=== PATIENT | female | born 1975 | race Caucasian/White ===

== ENCOUNTER 2016-12-03 06:28 | Emergency (ER) | payer OTHER ==
[2016-12-03] MEDS ORDERED: MECLIZINE 12.5 MG TAB PO STA (07:12)
--- NOTE | 2016-12-03 07:20 | ED ---
Dizziness HPI - General Chief Complaint: Dizziness Stated Complaint: Dizzy Time Seen by Provider: 12/03/16 07:00 Source: patient, family, RN notes reviewed Mode of arrival: ambulatory Limitations: no limitations - History of Present Illness Initial Comments: This is a 41-year-old female with a benign past medical history states she had the onset around 10:30 last night of some dizziness. He states when she walks she feels off balance like she may follow over. She feels generally weak she has had a recent upper respiratory infection and has had several days of occasional nosebleed. She denies any overt fevers chills or sweats no earache sore throat. She has had some congestion with in her lungs. She denies any phlegm production. No prior history of vertigo head injury strokes MD Complaint: dizziness, difficulty walking - Related Data Home Medications Medication Instructions Recorded Confirmed Ibuprofen [Motrin] 800 mg PO Q6HR PRN 12/03/16 12/03/16 L.acidoph,Paracasei, B.lactis 1 cap PO DAILY 12/03/16 12/03/16 [Probiotic] Previous Rx's Medication Instructions Recorded Meclizine [Antivert] 25 mg PO TID #20 tab 12/03/16 Allergies Allergy/AdvReac Type Severity Reaction Status Date / Time No Known Allergies Allergy Verified 12/03/16 07:04 Review of Systems ROS Statement: Those systems with pertinent positive or pertinent negative responses have been documented in the HPI. ROS Other: All systems not noted in ROS Statement are negative. Past Medical History Past Medical History: No Reported History History of Any Multi-Drug Resistant Organisms: None Reported Past Surgical History: No Surgical Hx Reported Past Psychological History: No Psychological Hx Reported Smoking Status: Current every day smoker Past Alcohol Use History: Occasional Past Drug Use History: None Reported General Exam - General Exam Comments Initial Comments: This is a well-developed well-nourished awake alert oriented 3 female Limitations: no limitations General appearance: alert, in no apparent distress Head exam: Present: atraumatic, normocephalic, normal inspection Eye exam: Present: normal appearance, PERRL, EOMI. Absent: scleral icterus, conjunctival injection, periorbital swelling ENT exam: Present: mucous membranes moist, other (Some boggy nasal mucosa no discharge at this time) Neck exam: Present: normal inspection. Absent: tenderness, meningismus, lymphadenopathy Respiratory exam: Present: normal lung sounds bilaterally. Absent: respiratory distress, wheezes, rales, rhonchi, stridor Cardiovascular Exam: Present: regular rate, normal rhythm, normal heart sounds. Absent: systolic murmur, diastolic murmur, rubs, gallop, clicks GI/Abdominal exam: Present: soft, normal bowel sounds. Absent: distended, tenderness, guarding, rebound, rigid Extremities exam: Present: normal inspection, full ROM, normal capillary refill. Absent: tenderness, pedal edema, joint swelling, calf tenderness Back exam: Present: normal inspection Neurological exam: Present: alert, oriented X3, CN II-XII intact Psychiatric exam: Present: normal affect, normal mood Skin exam: Present: warm, dry, intact, normal color. Absent: rash Course Vital Signs 12/03/16 06:32 Temperature 98.1 F Pulse Rate 67 Respiratory 18 Rate Blood Pressure 117/77 O2 Sat by Pulse 100 Oximetry - Reevaluation(s) Reevaluation #1: 12/03/16 08:30 The patient was noted ambulate without much difficulty. Reevaluation #2: 12/03/16 08:30 I did a long discussion with the patient regarding smoking cessation and risks of smoking. This lasted approximately 3.2 minutes EKG Findings - EKG Results: EKG: interpreted by KAYLA WOO, sinus rhythm, normal axis, normal QRS, normal ST/ T, no acute changes (Normal sinus rhythm with a rate of 62. Interval 156 QRS duration 92 QT/QTC of 14/[address]-T wave changes.) Medical Decision Making - Medical Decision Making A long discussion with the patient regarding the findings and the likelihood a virus therefore antibiotics are of no use an or not indicated. She was counseled about smoking cessation. We placed on Antivert she is given a note for work today. She was encouraged to increase oral fluids. - Radiology Data Radiology results: report reviewed (X-rays negative for acute findings.), image reviewed Disposition Clinical Impression: Vertigo, Smoking, Smoking Disposition: HOME SELF-CARE Condition: Good Instructions: Dizziness (ED), Benign Paroxysmal Positional Vertigo (ED), How to Stop Smoking (ED) Prescriptions: Meclizine [Antivert] 25 mg PO TID #20 tab Referrals: None,Stated [Primary Care Provider] - 1-2 days
--- NOTE | 2016-12-03 08:08 | XR ---
EXAMINATION TYPE: XR chest 2V DATE OF EXAM: 12/03/2016 7:45 AM COMPARISON: NONE HISTORY: Cough FINDINGS: The lungs are clear and there is no pneumothorax, pleural effusion, or focal pneumonia. IMPRESSION: 1. No acute process.
[2016-12-03 08:48] VITALS: BP 103/59; PULSE 61; RESP 16; TEMP 98.5
== END 2016-12-03 08:50 | disposition home or self-care (01) ==
LOC: EC 06:28
DX: R42 Dizziness and giddiness (principal); R04.0 Epistaxis; F17.200 Nicotine dependence, unspecified, uncomplicated; Z79.899 Other long term (current) drug therapy
CPT/HCPCS: 71020; 93005; 99283

== ENCOUNTER → 2017-10-12 | Outpatient (CLI) | payer OTHER ==
--- NOTE | 2017-10-13 07:03 | US ---
EXAMINATION TYPE: US pelvic complete DATE OF EXAM: 10/12/2017 COMPARISON: NONE CLINICAL HISTORY: R10.2 Pelvic Pain, N81.4 Uterine Prolapse. Pelvic pain with heavier cycles, physici an can feel uterus within vaginal canal and patient is pending hysterectomy, IUD TECHNIQUE: TA, no TV Date of LMP: 09/14/2017 EXAM MEASUREMENTS: Uterus: 10.7 x 7.2 x 6.2 cm Endometrial Stripe: 2.4 cm Right Ovary: 2.9 x 2.2 x 1.6 cm Left Ovary: 2.3 x 1.5 x 1.6 cm 1. Uterus: Anteverted wnl 2. Endometrium: thickened with fluid seen anterior to IUD and small area of endometrial fluid noted to the left if IUD. IUD is located centrally within the endometrial canal bridging the lower and uppe r uterine segments. 3. Right Ovary: wnl 4. Left Ovary: wnl 5. Bilateral Adnexa: wnl 6. Posterior cul-de-sac: wnl IMPRESSION: Abnormally thickened endometrium measuring up to 2.2 cm with a small amount of endometria l cavity fluid seen adjacent to the intrauterine device near the fundus. Differential is for endometr ial hyperplasia, endometrial polyp or endometrial carcinoma. Direct visualization and/or tissue sampl ing are recommended. A Yellow message has been communicated to Pooja Busch DO via the [employer] Critical Result system on 10/13/2017 7:00 AM, Message ID [id number].
== END | disposition home or self-care (01) ==
LOC: RADUSWWP 16:07
PROVIDERS: ATTEND Obstetrics & Gynecology
DX: R93.8 Abnormal findings on diagnostic imaging of other specified body structures (principal); R10.2 Pelvic and perineal pain
CPT/HCPCS: 76856

== ENCOUNTER → 2017-10-26 | Outpatient (CLI) | payer OTHER ==
--- NOTE | 2017-10-26 13:44 | US ---
EXAMINATION TYPE: US pelvic complete DATE OF EXAM: 10/26/2017 COMPARISON: US October 12, 2017 CLINICAL HISTORY: N93.8 ENDOMETRIAL THICKENING ON ULTRASOUND. Prior abnormal ultrasound. TECHNIQUE: Transabdominal (TA) Date of LMP: 10/16/2017 EXAM MEASUREMENTS: Uterus: 10.9 x 5.4 x 7.3 cm Endometrial Stripe: 0.8 cm Right Ovary: 3.4 x 2.4 x 3.7 cm Left Ovary: 2.5 x 2.5 x 3.2 cm 1. Uterus: Anteverted wnl 2. Endometrium: wnl 3. Right Ovary: wnl 4. Left Ovary: wnl 5. Bilateral Adnexa: wnl 6. Posterior cul-de-sac: no free fluid Linear hypodensity consistent with IUD centrally in uterus is redemonstrated. There is interval impro vement in endometrial thickening on current study. IMPRESSION: Marked improvement in endometrial thickening after menses in between ultrasound exams.
== END | disposition home or self-care (01) ==
LOC: RADUSWWP 12:17
PROVIDERS: ATTEND Obstetrics & Gynecology
DX: R93.8 Abnormal findings on diagnostic imaging of other specified body structures (principal); N93.8 Other specified abnormal uterine and vaginal bleeding
CPT/HCPCS: 76856

== ENCOUNTER → 2017-11-24 | Outpatient (CLI) | payer OTHER ==
[2017-11-24 14:30] LABS: Basophils % (A) 1 %; CH 28.1; CHCM 31.6; Eosinophils # (A) 0.1 k/uL (0-0.7); Eosinophils % (A) 2 %; HCT 38.3 % (34.0-46.0); HDW 2.32; HGB 12.4 gm/dL (11.4-16.0); Luc # (Auto) 0.14; Luc % (Auto) 2; Lymphocytes % (A) 35 %; MCH 28.9 pg (25.0-35.0); MCHC 32.4 g/dL (31.0-37.0); Monocytes # (A) 0.3 k/uL (0-1.0); Monocytes % (A) 6 %; Neutrophils # (A) 3.1 k/uL (1.3-7.7); Neutrophils % (A) 55 %; RBC 4.29 m/uL (3.80-5.40); RDW 15.1 % (11.5-15.5); WBC 5.8 k/uL (3.8-10.6); WBC (Perox) 6.32
[2017-11-24 14:32] LABS: MCV 89.3 fL (80.0-100.0)
[2017-11-24 14:33] LABS: Anion Gap 7 mmol/L; Blood Urea Nitrogen 15 mg/dL (7-17); Calcium 10.1 mg/dL (8.4-10.2); Carbon Dioxide 27 mmol/L (22-30); Chloride 104 mmol/L (98-107); Glucose 73 mg/dL (74-99); Non-African American GFR(MDRD) >60 (>60 ml/min/1.73 sqM); Potassium 4.4 mmol/L (3.5-5.1); Sodium 138 mmol/L (137-145)
== END | disposition home or self-care (01) ==
LOC: LABPAT 13:15
PROVIDERS: ATTEND Obstetrics & Gynecology
DX: Z01.812 Encounter for preprocedural laboratory examination (principal)
CPT/HCPCS: 36415; 80048; 85025

== ENCOUNTER 2017-12-01 05:50 | Inpatient (IN) | payer OTHER ==
--- NOTE | 2017-11-30 20:07 | P.HPOB ---
History of Present Illness H&P Date: 11/30/17 Chief Complaint: Uterine prolapse with cystocele and rectocele, pelvic pain This is a 42-year-old female 7 para 5 who presents for total vaginal hysterectomy with anterior and possible posterior vaginal colporrhaphy along with urethral sling to be performed by Dr. Bullock for urinary stress incontinence. Patient complains of heavy menses along with painful menses that is been occurring for 4 years. She also complains of lower pelvic pain even when she is not on her menses and painful intercourse. She also expresses some stress incontinence and has been evaluated by urology who determined that she does need to have a sling during her procedure. She has consented to possible total abdominal hysterectomy if necessary. Obstetrical history: . History of 5 vaginal deliveries and 2 miscarriages. Gynecologic history: No history of sexual transmitted diseases. She currently has a ParaGard IUD for control. Social history: She is . She does factory work. Review of Systems Constitutional: Reports fatigue, Denies chills, Denies fever Eyes: denies blurred vision, denies pain Ears, nose, mouth and throat: Denies headache, Denies sore throat Cardiovascular: Reports palpitations, Denies chest pain Gastrointestinal: Reports abdominal pain (With bowel movement when she is on her menses) Genitourinary: Reports dysmenorrhea, Reports dyspareunia, Reports menorrhagia, Reports pelvic pain, Reports prolapse symptoms, Reports stress incontinence Menstruation: Reports period heavy Musculoskeletal: Reports low back pain Integumentary: Denies pruritus, Denies rash Neurological: Denies numbness, Denies weakness Psychiatric: Reports anxiety, Reports change in libido, Reports insomnia Endocrine: Reports fatigue, Denies weight change Past Medical History Past Medical History: No Reported History Additional Past Medical History / Comment(s): URINARY INCONTINENCE, PROLAPSED UTERUS History of Any Multi-Drug Resistant Organisms: None Reported Past Surgical History: No Surgical Hx Reported Additional Past Surgical History / Comment(s): REMOVAL OF NORPLANT Past Anesthesia/Blood Transfusion Reactions: No Reported Reaction Past Psychological History: Anxiety Smoking Status: Current every day smoker Past Alcohol Use History: Occasional Past Drug Use History: None Reported - Past Family History Mother Family Medical History: Hypertension Additional Family Medical History / Comment(s): Aortic aneurysm Father Family Medical History: CVA/TIA, Diabetes Mellitus, Hypertension Medications and Allergies Home Medications Medication Instructions Recorded Confirmed Type Acetaminophen Tab [Tylenol Tab] 1,500 mg PO BID PRN 11/18/17 11/18/17 History Allergies Allergy/AdvReac Type Severity Reaction Status Date / Time No Known Allergies Allergy Verified 11/18/17 09:22 Exam Osteopathic Statement: *. No significant issues noted on an osteopathic structural exam other than those noted in the History and Physical/Consult. HEENT: Within normal limits Heart: Regular rate and rhythm Lungs: Clear to auscultation bilaterally Abdomen: Soft, nontender Pelvic exam: Uterus is tender, anteverted, with no adnexal masses palpated. Bilateral adnexa are tender. There is second-degree uterine prolapse, second- degree cystocele, and minimal first-degree rectocele noted. Extremities: Negative Homans Assessment and Plan (1) Cystocele with uterine prolapse Status: Acute Code(s): N81.4 - UTEROVAGINAL PROLAPSE, UNSPECIFIED SNOMED Code(s): 615120056 (2) Urinary, incontinence, stress female Status: Acute Code(s): N39.3 - STRESS INCONTINENCE (FEMALE) (MALE) SNOMED Code(s): 46923941 (3) Pelvic pain Status: Acute Code(s): R10.2 - PELVIC AND PERINEAL PAIN SNOMED Code(s): 46262083 Plan: Proceed with total vaginal hysterectomy with anterior vaginal colporrhaphy, possible posterior vaginal colporrhaphy, possible total abdominal hysterectomy. Dr. Bullock will perform pubovaginal sling. I have discussed the risks, benefits, and alternative therapies for the above- mentioned procedure and for both sedation/anesthesia as well as necessary blood products administration, if indicated, as they pertain to this patient. The patient has indicated her understanding and acceptance of the risks and procedures discussed.
[~2017-12-01 05:50] MED LIST: DEXAMETHASONE SOD PHOSPHATE 10 MG/ML 1 ML VIAL IV ONE; HYDROmorphone 1 MG/ML 1 ML SYRINGE IVP PRN; LACTATED RINGERS 1,000 ML IV ONE; MORPHINE SULFATE 5 MG/ML SYRINGE IV PRN; ONDANSETRON 4 MG/2 ML VIAL IVP ONE; ONDANSETRON 4 MG/2 ML VIAL IVP PRN; ceFAZolin IN SWFI 2 GM/20 ML SYRINGE IVP ONE
[2017-12-01] MEDS ORDERED: LIDOCAINE 1% 20 ML VIAL (10MG/ML) FOR IV START INTRADERMA ONE (06:14)
[2017-12-01] MEDS ORDERED: LACTATED RINGERS 1,000 ML IV ONE ×3 (06:14→08:22)
[2017-12-01] MEDS ORDERED: SCOPOLAMINE 1.5MG/72HR PATCH TRANSDERM ONE (06:19)
[2017-12-01] MEDS ORDERED: GENTAMICIN 120 MG in SODIUM CHLORIDE 0.9% 100 ML IVPB ONE (06:41)
[2017-12-01] MEDS ORDERED: MIDAZOLAM 2 MG/2 ML VIAL IV ONE (06:49)
[2017-12-01] MEDS ORDERED: HYDROmorphone (PF) 1 MG/ML ONE (07:36)
[2017-12-01] MEDS ORDERED: KETOROLAC 30 MG/ML 1 ML VIAL ONE (07:36)
[2017-12-01] MEDS ORDERED: LIDOCAINE 1% INJ 10MG/ML (20 ML MDV) ONE (07:36)
[2017-12-01] MEDS ORDERED: SUCCINYLCHOLINE CHLORIDE 100 MG/5 ML SYR IV ONE (07:36)
[2017-12-01] MEDS ORDERED: PROPOFOL 10 MG/ML 20 ML VIAL IV ONE (07:36)
[2017-12-01] MEDS ORDERED: MIDAZOLAM 2 MG/2 ML VIAL ONE (07:36)
[2017-12-01] MEDS ORDERED: fentaNYL (PF) 50 MCG/ML 2 ML AMP ONE (07:36)
[2017-12-01] MEDS ORDERED: EPINEPHrine 1 MG/ML 1 ML AMP IV ONE ×2 (07:52→09:06)
[2017-12-01] MEDS ORDERED: GENTAMICIN 80 MG in SODIUM CHLORIDE 0.9% 500 ML IRRIGATION ONE (07:52)
[2017-12-01] MEDS ORDERED: BACITRACIN 500 UNIT/GM OINT 28.4 GM TUBE TOPICAL ONE (08:05)
--- NOTE | 2017-12-01 09:40 | P.OP ---
Date of Procedure: 12/01/17 Preoperative Diagnosis: Mixed Urinary Incontinence Postoperative Diagnosis: Same Procedure(s) Performed: Obtryx Subfascial Sling Anesthesia: SARAH Surgeon: Demetrius Bullock Pulley Worker #1: Pooja Busch Estimated Blood Loss (ml): 50 Pathology: none sent Condition: stable Disposition: PACU Indications for Procedure: The patient is a 42-year-old woman with mild mixed urinary incontinence. She is scheduled to undergo a hysterectomy for prolapse and dysmenorrhea. Examination shows evidence of urethral hypermobility, and urodynamic testing is consistent with type II stress urinary incontinence. In view of this, I have suggested she undergo a TOT sling at the time of her TVH. Operative Findings: Complete left-sided ureteral duplication. Description of Procedure: I entered the operating room after Dr. Busch had completed the TVH. The patient was positioned in the dorsolithotomy position, with her legs supported in candycane stirrups. Metzenbaum scissors were used to dissect laterally within the submucosal plane, to the inferior pubic ramus. The scalpel was used to make bilateral groin incisions at the level of the clitoris. Subcutaneous tissues were spread with a hemostat. Each of the helical needles were passed through the respective groin incision, and turned such that the needle tip wrapped around the pubis. The needle tips were guided digitally into the vaginal incision. The Obtryx graft, which had been previously soaked in antibiotic solution, was secured to the needle tips in the standard fashion. The needles were then withdrawn, and the position of the graft was adjusted such that it overlie the mid urethra, as desired. With a hemostat placed between the graft and the urethra to prevent tension of the graft over the urethra, the plastic sheath was removed from the ends of the graft. The ends of the graft were cut beneath the skin incisions, and these incisions were closed using 4-0 Vicryl suture in a subcuticular fashion. Hemostasis within the vaginal incision was adequate. Cystoscopy was performed. The 30 lens was used to introduce the 17-Romanian Storz cystoscopic sheath through the urethra and into the bladder under direct vision. The urethra and bladder were unremarkable. There was no evidence of perforation. The right ureteral orifice was of normal anatomic location, and clear urine effluxed from it. 2 ureteral orifices were seen on the left, consistent with a complete ureteral duplication, and clear urine effluxed from both. No tumors or foreign bodies were seen. The cystoscope was removed, and the Jimenes catheter was replaced into the bladder. Dr. Busch proceeded to close the vaginal incision using 0 Vicryl suture in a running fashion. Vaginal packing was placed. All sponge and needle counts were correct. The patient tolerated the procedure well was taken to the recovery room in stable condition.
--- NOTE | 2017-12-01 09:40 | P.OP ---
Date of Procedure: 12/01/17 Preoperative Diagnosis: 1. Menorrhagia with regular cycle. 2. Pelvic pain. 3. Uterine prolapse with cystocele. 4. Urinary stress incontinence. Postoperative Diagnosis: Same Procedure(s) Performed: Total vaginal hysterectomy with anterior vaginal colporrhaphy Obtryx halo sling performed by Dr. Bullock Anesthesia: SARAH Surgeon: Pooja Busch Cloth Tester #1: Bennett Montemayor Estimated Blood Loss (ml): 250 Pathology: other (Uterus with cervix, vaginal mucosa) Condition: stable Disposition: floor Indications for Procedure: This is a 42-year-old female 7 para 5 who presents for total vaginal hysterectomy with anterior and possible posterior vaginal colporrhaphy along with urethral sling to be performed by Dr. Bullock for urinary stress incontinence. Patient complains of heavy menses along with painful menses that is been occurring for 4 years. She also complains of lower pelvic pain even when she is not on her menses and painful intercourse. She also expresses some stress incontinence and has been evaluated by urology who determined that she does need to have a sling during her procedure. She has consented to possible total abdominal hysterectomy if necessary. Operative Findings: Uterus is slightly bulky, anteverted. Both tubes and ovaries appeared normal. Grade 2 cystocele was noted. Minimal rectocele was appreciated. Description of Procedure: The patient is taken the operating room where she is placed in the dorsal lithotomy position. She is prepped and draped in the normal sterile fashion. Next a weighted speculum was placed in the patient's vagina and a right angle retractor was used to visualize the cervix. The anterior lip of the cervix is grasped with a single-tooth tenaculum. Next the cervix was circumferentially injected with one amp of epinephrine to 150 mL of normal saline. Next the cervix was circumscribed with a scalpel. The vaginal mucosa was pushed away from the cervix with a sponge. Next the uterosacral ligaments are clamped on either side with a Yohana clamp, cut with Salvador scissors, and then sutured with 0 Vicryl suture in a Yohana transfixion stitch and then held on either side with a straight hemostat. Next the posterior peritoneal reflection was identified and entered sharply with Salvador scissors. The edges of the vaginal mucosa was then tagged with 0 Vicryl suture and held with a curved hemostat for identification. Next a longbilled weighted speculum was placed through the posterior peritoneal reflection. Next the cardinal ligaments were clamped on either side with Yohana clamps, cut with Salvador scissors, and then sutured with 0 Vicryl suture in Yohana transfixion stitches and cut. Next the vesicouterine peritoneum reflection is identified and entered sharply with Metzenbaum scissors. A right angle bladder retractor is then used to retract the bladder. The uterine arteries are clamped on either side with Yohana clamps, cut with Salvador scissors, and then sutured with 0 Vicryl suture in Yohana transfixion stitches. The round ligament is also clamped on either side with a Yohana clamp , cut with Salvador scissors, and sutured with 0 Vicryl suture in Yohana transfixion stitches. The uterus is then delivered posteriorly with the assistance of a single-tooth tenaculum. This helped with visualization. Next the uterine ovarian ligament and tube were clamped on either side with a Yohana clamp, cut with Salvador scissors, and then sutured with 0 Vicryl suture in a figure -of-eight stitch, flashed, and then free tied with another suture of 0 Vicryl suture. These pedicles were held with a straight Wayne for identification. The uterus is removed from the field. Excellent hemostasis is noted after several interrupted stitches are placed. Both tubes and ovaries are visualized and appeared normal. Next the peritoneum is closed with 0 Vicryl suture in a pursestring fashion incorporating all the held ligaments. Next the uterine ovarian ligaments are tied together in the middle and cut. Next attention was turned to the cystocele repair. The edges of the vaginal mucosa are held with 2 Allis clamps. Next injection of the same epinephrine solution is injected underneath the mucosa upwards towards the urethra. Metzenbaum scissors were used to dissect underneath the vaginal mucosa and cut along the way up to just below the urethra. Sharp and blunt dissection are used to dissect the bladder away from the vaginal mucosa. Next Dr. Bullock performed his sling procedure. This will be dictated separately. The cystocele is reduced with 0 Vicryl suture in [id number] stitches on either side of the cystocele. Next the edges of the vaginal mucosa are trimmed with Metzenbaum scissors. Next the vaginal mucosa is sutured with 0 Vicryl suture in a running locked fashion incorporating the vaginal cuff. The uterosacral ligaments were also tied together in the midline prior to completely closing the vaginal cuff. Excellent hemostasis is noted. The Jimenes catheter was previously inserted by Dr. Kennedy and clear urine is noted. At this time no significant rectocele is noted. Next the vagina is packed with one-inch iodoform gauze with bacitracin ointment. All sponge and needle counts are correct and the patient is then taken to recovery room in stable condition.
[2017-12-01] MEDS: MEPERIDINE 50 MG/ML SYRINGE IVP ONE ×3 (09:53→10:26)
[2017-12-01] MEDS ORDERED: MEPERIDINE 50 MG/ML SYRINGE IVP ONE (09:53)
[2017-12-01] MEDS ORDERED: diphenhydrAMINE 50 MG/ML 1 ML VIAL IVP ONE (09:53)
[2017-12-01] MEDS ORDERED: NALOXONE 0.4 MG/ML 1 ML VIAL IV PRN (10:52)
[2017-12-01] MEDS ORDERED: HYDROmorphone PCA 5 MG/25 ML SYRINGE IV PRN (10:52)
[2017-12-01] MEDS ORDERED: diphenhydrAMINE 50 MG/ML 1 ML VIAL IVP PRN (10:52)
[2017-12-01] MEDS ORDERED: SIMETHICONE 80 MG CHEWABLE PO PRN (10:52)
[2017-12-01] MEDS ORDERED: Acetaminophen-Codeine 300-30mg TAB PO PRN (10:52)
[2017-12-01] MEDS ORDERED: IBUPROFEN 600 MG TAB PO PRN (10:52)
[2017-12-01] MEDS ORDERED: METOCLOPRAMIDE 5 MG/ML 2 ML VIAL IVP PRN (10:52)
[2017-12-01] MEDS ORDERED: ONDANSETRON 4 MG/2 ML VIAL IVP PRN (10:52)
[2017-12-01] MEDS ORDERED: ZOLPIDEM 5 MG TAB PO PRN (10:52)
[2017-12-01] MEDS: LACTATED RINGERS 1,000 ML IV SCH ×3 (11:07→23:03)
[2017-12-01] MEDS: KETOROLAC 30 MG/ML 1 ML VIAL IVP PRN ×2 (11:16→17:05)
[2017-12-01] MEDS: Acetaminophen-Codeine 300-30mg TAB PO PRN ×2 (13:55→20:52)
[2017-12-01] MEDS ORDERED: ceFAZolin 1 GM in SODIUM CHLORIDE 0.9% 100 ML IVPB SCH (16:00)
[2017-12-01] MEDS: ceFAZolin 1,000 MG in DEXTROSE/WATER 1 50ML.BAG IVPB SCH (16:03)
[2017-12-01 16:35] VITALS: BMI 27.2
[2017-12-01] MEDS: SENNOSIDES-DOCUSATE SODIUM 1 EACH TAB PO SCH ×2 (20:51)
[2017-12-02] MEDS: KETOROLAC 30 MG/ML 1 ML VIAL IVP PRN ×2 (00:28→06:12)
[2017-12-02] MEDS: ceFAZolin 1,000 MG in DEXTROSE/WATER 1 50ML.BAG IVPB SCH ×2 (00:29→09:31)
[2017-12-02 04:19] VITALS: RESP 18
[2017-12-02] MEDS ORDERED: ACETAMINOPHEN TAB 325 MG TAB PO PRN (07:41)
--- NOTE | 2017-12-02 08:02 | P.PN ---
Progress Note - Text Progress Note Date: 12/02/17 POD #1, s/p TVH with Obtryx sling. Patient reports mild discomfort. Her Jimenes catheter was removed this morning, but she has yet to void. She is afebrile with stable vital signs. Her groin incisions are intact. Postvoid residuals will be checked to assess bladder emptying. If she is unable to void, or empties incompletely, she will be taught to self catheterize. I'm hopeful that she can be discharged home later today, and follow up with me in 1 week.
[2017-12-02 08:25] LABS: Basophils % (A) 0 %; Eosinophils % (A) 0 %; HCT 31.6 % (34.0-46.0); Hypochromasia Slight; Lymphocytes # (A) 2.2 k/uL (1.0-4.8); Lymphocytes % (A) 25 %; MCH 28.2 pg (25.0-35.0); MCHC 30.7 g/dL (31.0-37.0); MCV 91.9 fL (80.0-100.0); Mean Platelet Volume 7.3; Monocytes # (A) 0.5 k/uL (0-1.0); Monocytes % (A) 6 %; Neutrophils % (A) 68 %; Platelet Count 213 k/uL (150-450); RBC 3.43 m/uL (3.80-5.40); WBC 8.9 k/uL (3.8-10.6)
[2017-12-02 08:29] LABS: HGB 9.7 gm/dL (11.4-16.0)
[2017-12-02] MEDS: Acetaminophen-Codeine 300-30mg TAB PO PRN (08:48)
--- NOTE | 2017-12-02 09:23 | P.DS ---
Providers Date of admission: 12/01/17 05:50 Expected date of discharge: 12/02/17 Attending physician: Pooja Busch Primary care physician: Nisha Ivory - Discharge Diagnosis(es) (1) Cystocele with uterine prolapse Current Visit: Yes Status: Acute (2) Urinary, incontinence, stress female Current Visit: Yes Status: Acute (3) Pelvic pain Current Visit: Yes Status: Acute Hospital Course: This is a 42-year-old female who underwent a total vaginal hysterectomy with anterior vaginal colporrhaphy and Obtryx vaginal slingurethralon 12/01/2017. Postoperatively she has done well. She has ambulated and has taken a shower. Since her catheter has been removed she has urinated good amounts in low postvoid residuals were noted. Her post void residuals are low. She has been passing flatus but no bowel movement yet. Her pain is fairly well controlled with oral pain medications. She is sore in her hips in her back but otherwise only has some mild cramping. Vaginal bleeding is decreasing. Vital signs are stable. Abdomen is soft with positive bowel sounds 4. Extremities show negative Homans. Impression is status post total vaginal hysterectomy with anterior vaginal colporrhaphy and suburethral sling, postoperative day #1. Plan is to discharge home today. She is advised to follow up in the office in approximately 2 weeks. Routine postoperative instructions are given. She will be given a prescription for ibuprofen and Tylenol 3. She also stated Dr. Bullock is sending her home on antibiotic. He plans to see her in the office in 1 week. She is advised to call the office if she has any further questions or concerns prior her to appointment time. Procedures: Total vaginal hysterectomy with anterior vaginal colporrhaphy and Obtryx suburethral sling on 12/01/2017 Patient Condition at Discharge: Stable Plan - Discharge Summary Discharge Rx Participant: Yes New Discharge Prescriptions: New Cephalexin [Keflex] 500 mg PO Q8HR #15 cap Hydrocodone/Acetaminophen [[place] 5-325] 1 - 2 each PO Q4HR PRN #20 tab PRN Reason: Pain Ibuprofen [Motrin] 600 mg PO Q6HR PRN #60 tab PRN Reason: Mild Discomfort No Action Acetaminophen Tab [Tylenol Tab] 1,500 mg PO BID PRN PRN Reason: PAIN Discharge Medication List Acetaminophen Tab [Tylenol Tab] 1,500 mg PO BID PRN 11/18/17 [History] Cephalexin [Keflex] 500 mg PO Q8HR #15 cap 12/02/17 [Rx] Hydrocodone/Acetaminophen [[place] 5-325] 1 - 2 each PO Q4HR PRN #20 tab 12/02/17 [Rx] Ibuprofen [Motrin] 600 mg PO Q6HR PRN #60 tab 12/02/17 [Rx] Follow up Appointment(s)/Referral(s): Demetrius Bullock MD [STAFF PHYSICIAN] - 1 Week Pooja Busch DO [Doctor of Osteopathic Medicine] - 2 Weeks Patient Instructions/Handouts: *Surgery [facility] - Scopalamine Patch Instructions Activity/Diet/Wound Care/Special Instructions: Diet as tolerated. No heavy lifting, stooping, or bending. May shower but no tub baths. No intercourse for 6 weeks. Discharge Disposition: HOME SELF-CARE
[2017-12-02] MEDS: SENNOSIDES-DOCUSATE SODIUM 1 EACH TAB PO SCH (09:34)
[2017-12-02 11:06] VITALS: BP 119/61; PULSE 72; TEMP 97.7
== END 2017-12-02 10:55 | disposition home or self-care (01) | DRG 743 ==
LOC: 2ORMAIN 05:50 → 4FBP 09:26
PROVIDERS: ADMIT Obstetrics & Gynecology; ATTEND Obstetrics & Gynecology
PROC: 0UT97ZZ Resection of Uterus, Via Natural or Artificial Opening (ICD-10-PCS; principal; 2017-12-01 07:30)
PROC: 0JQC0ZZ Repair Pelvic Region Subcutaneous Tissue and Fascia, Open Approach (ICD-10-PCS; principal; 2017-12-01 07:30)
PROC: 0TSD0ZZ Reposition Urethra, Open Approach (ICD-10-PCS; principal; 2017-12-01 07:30)
DX: N81.2 Incomplete uterovaginal prolapse (principal); F17.200 Nicotine dependence, unspecified, uncomplicated; N39.46 Mixed incontinence; N92.0 Excessive and frequent menstruation with regular cycle; N94.6 Dysmenorrhea, unspecified; Q62.5 Duplication of ureter; Z82.49 Family history of ischemic heart disease and other diseases of the circulatory system; Z83.3 Family history of diabetes mellitus; Z97.5 Presence of (intrauterine) contraceptive device
CPT/HCPCS: 81025; 85025; 86850; 86900; 86901; 88302; 88307

== ENCOUNTER → 2018-01-25 | Outpatient (CLI) | payer OTHER ==
--- NOTE | 2018-01-25 22:30 | MR ---
EXAMINATION TYPE: MR lumbar spine wo con DATE OF EXAM: 01/25/2018 COMPARISON: Lumbar spine x-ray September 22, 2017 HISTORY: Low back pain, myalgia, bilateral hip pain, and lumbar region with radiculopathy all per ord er. Increasing low back pain over last 2-3 years going into right buttocks per patient. TECHNIQUE: Multiplanar, multisequence imaging of the lumbar spine is performed without IV contrast. FINDINGS: Sagittal images of the lumbar spine show vertebral body heights and alignment to appear sat isfactory. The intervertebral discs demonstrate normal heights and hydration. No large posterior disc herniations are seen on sagittal images. The conus medullaris is slightly low in position ending at mid L2 level. No suspicious signal is seen. No suspicious clumping of lumbosacral nerve roots is not ed. No significant spurring is present. The bone marrow signal intensity is within normal limits. Axial images show mild facet arthropathy L4-L5 and L5-S1 levels but the spinal canal is preserved and bilateral neural foramina are patent. There is nonspecific 7 mm nodule or mass left adrenal gland axial image 30 favored benign. IMPRESSION: Some mild degenerative changes lower lumbar spine as detailed above.
== END | disposition home or self-care (01) ==
LOC: RADMRIMAIN 16:56
PROVIDERS: ATTEND Physical Medicine & Rehabilitation
DX: M47.26 Other spondylosis with radiculopathy, lumbar region (principal); Z90.710 Acquired absence of both cervix and uterus
CPT/HCPCS: 72148

== ENCOUNTER → 2018-12-06 | Outpatient (CLI) | payer OTHER ==
--- NOTE | 2018-12-09 14:10 | MM ---
Reason for exam: clinical finding. Baseline mammogram. Indicated problem(s): lump or thickening and pain in both breasts. Physical Findings: Nurse did not find any significant physical abnormalities on exam. MG 3D Diag Mammo W/Cad DORA Bilateral CC and MLO view(s) were taken. No prior studies available for comparison. The breast tissue is heterogeneously dense. This may lower the sensitivity of mammography. No suspicious abnormality. ASSESSMENT: Incomplete: need additional imaging evaluation, BI-RAD 0 RECOMMENDATION: Ultrasound of both breasts.
--- NOTE | 2018-12-09 14:14 | USB ---
US Breast Limited BILAT Bilateral limited breast ultrasound including focal area of concern, retroareolar and axilla demonstrates right duct prominence at the nipple. No suspicious sonographic findings. These results were verbally communicated with the patient and result sheet given to the patient on 12/06/18. ASSESSMENT: Benign, BI-RAD 2 RECOMMENDATION: Routine screening mammogram of both breasts in 1 year. Manage on a clinical basis bilateral pain.
== END | disposition home or self-care (01) ==
LOC: RADMAMWWP 06:58
PROVIDERS: ATTEND Obstetrics & Gynecology
DX: N64.4 Mastodynia (principal)
CPT/HCPCS: 77062; 77066

== ENCOUNTER 2021-10-05 09:58 | Emergency (ER) | payer OTHER ==
[2021-10-05 10:50] VITALS: RESP 18
--- NOTE | 2021-10-05 12:38 | ED ---
ENT HPI - General Chief complaint: ENT Stated complaint: headache & sore throat Time Seen by Provider: 10/05/21 11:00 Source: patient Mode of arrival: ambulatory Limitations: no limitations - History of Present Illness Initial comments: Patient is a 46-year-old female presenting to the emergency Department with complaints of left ear pain, sore throat, headache over the past 3 days. Her son was recently diagnosed with strep, daughter has similar symptoms as well. She denies any chest pain or shortness of breath, no coughing. She states she has had ear infections in the past and this feels similar. She denies any fevers. She has no further complaints. Her vitals are stable upon arrival. - Related Data Home Medications Medication Instructions Recorded Confirmed Acetaminophen Tab [Tylenol Tab] 1,500 mg PO BID PRN 11/18/17 12/01/17 Previous Rx's Medication Instructions Recorded Cephalexin [Keflex] 500 mg PO Q8HR #15 cap 12/02/17 Hydrocodone/Acetaminophen [[place] 1 - 2 each PO Q4HR PRN #20 tab 12/02/17 5-325] Ibuprofen [Motrin] 600 mg PO Q6HR PRN #60 tab 12/02/17 Amoxicillin 875 mg PO Q12HR 5 Days #10 tablet 10/05/21 Allergies Allergy/AdvReac Type Severity Reaction Status Date / Time No Known Allergies Allergy Verified 10/05/21 10:49 Review of Systems ROS Statement: Those systems with pertinent positive or pertinent negative responses have been documented in the HPI. ROS Other: All systems not noted in ROS Statement are negative. Past Medical History Past Medical History: No Reported History Additional Past Medical History / Comment(s): URINARY INCONTINENCE, PROLAPSED UTERUS History of Any Multi-Drug Resistant Organisms: None Reported Past Surgical History: No Surgical Hx Reported Additional Past Surgical History / Comment(s): REMOVAL OF NORPLANT Past Anesthesia/Blood Transfusion Reactions: No Reported Reaction Past Psychological History: No Psychological Hx Reported Smoking Status: Current every day smoker Past Alcohol Use History: Occasional Past Drug Use History: None Reported - Past Family History Mother Family Medical History: Hypertension Additional Family Medical History / Comment(s): Aortic aneurysm Father Family Medical History: CVA/TIA, Diabetes Mellitus, Hypertension General Exam - General Exam Comments Initial Comments: GENERAL: Patient is well-developed and well-nourished. Patient is nontoxic and in no acute distress. HEAD: Atraumatic, normocephalic. EYES: Pupils equal round and reactive to light, extraocular movements intact, sclera anicteric, conjunctiva are normal. Eyelids were unremarkable. ENT: TMs normal, nares patent, oropharynx clear without exudates. Moist mucous membranes. NECK: Normal range of motion, supple without lymphadenopathy or JVD. LUNGS: Unlabored respirations. Breath sounds clear to auscultation bilaterally and equal. No wheezes rales or rhonchi. HEART: Regular rate and rhythm without murmurs, rubs or gallops. ABDOMEN: Soft, nontender, normoactive bowel sounds. No guarding, no rebound. No masses appreciated. MUSCULOSKELETAL: Normal extremities with adequate strength and normal range of motion, no pitting or edema. No clubbing or cyanosis. NEUROLOGICAL: Patient is alert and oriented x 3. SKIN: Warm, Dry, normal turgor, no rashes or lesions noted. Limitations: no limitations Course Vital Signs 10/05/21 10/05/21 10:45 12:45 Temperature 97.8 F 98.0 F Pulse Rate 71 72 Respiratory 18 18 Rate Blood Pressure 146/82 142/80 O2 Sat by Pulse 100 100 Oximetry Medical Decision Making - Medical Decision Making Patient is a 46-year-old female here with left ear pain, headache, chills over the past 4 days. Son recently diagnosed with strep. Vital signs are stable, exam was unremarkable. Strep is negative, cold is negative. I discussed the patient's is most likely viral, patient is very concerned for possible ear infection and she's had one in the past. I will prescribe her amoxicillin for possible left otitis media, recommended waiting a few days, symptoms persist she can start taking. She is agreeable to this plan of care. She is stable for discharge. She can follow up with her primary care. - Lab Data Lab Results 10/05/21 10/05/21 Range/Units 10:54 10:54 Coronavirus (PCR) Not Detected (Not Detectd) Group A Strep Rapid Negative (Negative) Disposition Clinical Impression: Left otitis media Disposition: HOME SELF-CARE Condition: Stable Instructions (If sedation given, give patient instructions): Earache (ED) Additional Instructions: Please return to the Emergency Department if symptoms worsen or any other concerns. Take medications as prescribed. May take ibuprofen for any discomfort. Follow-up with your family doctor as needed. Prescriptions: Amoxicillin 875 mg PO Q12HR 5 Days #10 tablet Is patient prescribed a controlled substance at d/c from ED?: No Referrals: Simon Bryant MD [Primary Care Provider] - 1-2 days Time of Disposition: 12:38
[2021-10-05 12:54] VITALS: BP 142/80; PULSE 72; TEMP 98
== END 2021-10-05 12:45 | disposition home or self-care (01) ==
LOC: EC 09:58
DX: H66.92 Otitis media, unspecified, left ear (principal); R51.9 Headache, unspecified; F17.200 Nicotine dependence, unspecified, uncomplicated; Z20.822 Contact with and (suspected) exposure to COVID-19
CPT/HCPCS: 87081; 87430; 87635; 99284

== ENCOUNTER 2021-12-28 10:02 | Emergency (ER) | payer OTHER ==
[2021-12-28 10:29] VITALS: BP 134/87; PULSE 66; RESP 16; TEMP 98
[2021-12-28] MEDS ORDERED: ACETAMINOPHEN TAB 500 MG TAB PO STA (10:48)
[2021-12-28] MEDS ORDERED: IBUPROFEN 600 MG TAB PO STA (10:48)
--- NOTE | 2021-12-28 11:36 | ED ---
General Adult HPI - General Chief complaint: Recheck/Abnormal Lab/Rx Stated complaint: covid test Time Seen by Provider: 12/28/21 10:24 Source: patient, RN notes reviewed Mode of arrival: ambulatory Limitations: no limitations - History of Present Illness Initial comments: 46-year-old female presents emergency Department chief complaint covid 19. Patient states tested +3 times at home but work requires her to have PCR testing. Patient states that she is on day 6 of symptoms. Patient did appear shows cough congestion body. Patient offers no complaints or shortness of breath. - Related Data Home Medications Medication Instructions Recorded Confirmed Acetaminophen Tab [Tylenol Tab] 1,000 mg PO Q6H PRN 11/18/17 12/28/21 Allergies Allergy/AdvReac Type Severity Reaction Status Date / Time No Known Allergies Allergy Verified 12/28/21 10:45 Review of Systems ROS Statement: Those systems with pertinent positive or pertinent negative responses have been documented in the HPI. ROS Other: All systems not noted in ROS Statement are negative. Past Medical History Past Medical History: No Reported History Additional Past Medical History / Comment(s): URINARY INCONTINENCE, PROLAPSED UTERUS History of Any Multi-Drug Resistant Organisms: None Reported Past Surgical History: No Surgical Hx Reported Additional Past Surgical History / Comment(s): REMOVAL OF NORPLANT Past Anesthesia/Blood Transfusion Reactions: No Reported Reaction Past Psychological History: No Psychological Hx Reported Smoking Status: Current every day smoker Past Alcohol Use History: Occasional Past Drug Use History: None Reported - Past Family History Mother Family Medical History: Hypertension Additional Family Medical History / Comment(s): Aortic aneurysm Father Family Medical History: CVA/TIA, Diabetes Mellitus, Hypertension General Exam Limitations: no limitations General appearance: alert, in no apparent distress Head exam: Present: atraumatic, normocephalic, normal inspection Eye exam: Present: normal appearance, PERRL, EOMI. Absent: scleral icterus, conjunctival injection, periorbital swelling ENT exam: Present: normal exam, mucous membranes moist Neck exam: Present: normal inspection, full ROM. Absent: tenderness, meningismus, lymphadenopathy Respiratory exam: Present: normal lung sounds bilaterally. Absent: respiratory distress, wheezes, rales, rhonchi, stridor Cardiovascular Exam: Present: regular rate, normal rhythm, normal heart sounds. Absent: systolic murmur, diastolic murmur, rubs, gallop, clicks Course Vital Signs 12/28/21 10:26 Temperature 98 F Pulse Rate 66 Respiratory 16 Rate Blood Pressure 134/87 O2 Sat by Pulse 100 Oximetry Medical Decision Making - Medical Decision Making Patient is positive for covid 19. Patient discharged in stable condition. - Lab Data Lab Results 12/28/21 Range/Units 10:36 Coronavirus (PCR) Detected A (Not Detectd) Disposition Clinical Impression: COVID-19 Disposition: HOME SELF-CARE Condition: Stable Instructions (If sedation given, give patient instructions): Coronavirus Disease 2019 (COVID-19) Additional Instructions: Please return to the Emergency Department if symptoms worsen or any other concerns. Is patient prescribed a controlled substance at d/c from ED?: No Referrals: Simon Bryant MD [Primary Care Provider] - 1-2 days Time of Disposition: 11:36
== END 2021-12-28 11:47 | disposition home or self-care (01) ==
LOC: EC 10:02
DX: U07.1 COVID-19 (principal); F17.200 Nicotine dependence, unspecified, uncomplicated
CPT/HCPCS: 87635; 99283

== ENCOUNTER 2022-12-19 09:01 | Emergency (ER) | payer BC ==
[2022-12-19 09:10] VITALS: RESP 18
[2022-12-19] MEDS ORDERED: SODIUM CHLORIDE 0.9% 1,000 ML IV ONE (09:20)
[2022-12-19 09:39] LABS: Appearance,Urine Cloudy (Clear); Bacteria,Urine Rare /hpf; Bilirubin,Urine Negative (Negative); Blood,Urine Large (Negative); Color,Urine Light Red; Glucose,Urine (UA) Negative (Negative); Ketones,Urine Negative (Negative); Leukocyte Esterase,Urine Large (Negative); Mucus,Urine Rare /hpf; Nitrite,Urine Negative (Negative); PH, Urine 5.5 (5.0-8.0); Protein,Urine Trace (Negative); RBC,Urine >182 /hpf (0-5); Specific Gravity,Urine 1.017 (1.001-1.035); Urobilinogen,Urine <2.0 mg/dL (<2.0); WBC,Urine >182 /hpf (0-5)
[2022-12-19 10:28] LABS: ALT 22 U/L (4-34); AST 23 U/L (14-36); African American GFR (CKD) >90 (>60 ml/min/1.73 sqM); Albumin 3.8 g/dL (3.5-5.0); Alkaline Phosphatase 53 U/L (38-126); Anion Gap 3 mmol/L; Blood Urea Nitrogen 13 mg/dL (7-17); Calcium 8.9 mg/dL (8.4-10.2); Carbon Dioxide 25 mmol/L (22-30); Chloride 110 mmol/L (98-107); Glucose 91 mg/dL (74-99); Non-African American GFR(CKD) >90 (>60 ml/min/1.73 sqM); Potassium 4.2 mmol/L (3.5-5.1); Sodium 138 mmol/L (137-145); Total Bilirubin 0.6 mg/dL (0.2-1.3); Total Protein 6.4 g/dL (6.3-8.2)
[2022-12-19 10:30] LABS: Basophils % (A) 0 %; Eosinophils # (A) 0.1 k/uL (0-0.7); Eosinophils % (A) 1 %; HCT 39.9 % (34.0-46.0); HGB 13.6 gm/dL (11.4-16.0); Lymphocytes # (A) 1.6 k/uL (1.0-4.8); Lymphocytes % (A) 16 %; MCH 33.4 pg (25.0-35.0); MCV 98.2 fL (80.0-100.0); Mean Platelet Volume 7.2; Monocytes # (A) 0.4 k/uL (0-1.0); Monocytes % (A) 4 %; Neutrophils # (A) 7.8 k/uL (1.3-7.7); Neutrophils % (A) 78 %; Platelet Count 255 k/uL (150-450); RBC 4.06 m/uL (3.80-5.40); RDW 12.9 % (11.5-15.5)
--- NOTE | 2022-12-19 10:38 | ED ---
Female Urogenital HPI - General Chief complaint: Urogenital Stated complaint: Hematuria,Back Pain Time Seen by Provider: 12/19/22 09:11 Source: patient, RN notes reviewed Mode of arrival: ambulatory Limitations: no limitations - History of Present Illness Initial comments: 47-year-old female presents emergency Department chief complaint of lower abdominal discomfort, dysuria hematuria. Patient states that she noticed that when she urinated and then wiped there was some small amount blood. She denies any flank pain denies chest pain shortness of breath no fevers or chills states it is uncomfortable when she urinates and struck unusual. - Related Data Home Medications Medication Instructions Recorded Confirmed Acetaminophen Tab [Tylenol Tab] 1,000 mg PO Q6H PRN 11/18/17 12/28/21 Previous Rx's Medication Instructions Recorded Cephalexin [Keflex] 500 mg PO Q8HR #21 cap 12/19/22 Allergies Allergy/AdvReac Type Severity Reaction Status Date / Time No Known Allergies Allergy Verified 12/19/22 09:10 Review of Systems ROS Statement: Those systems with pertinent positive or pertinent negative responses have been documented in the HPI. ROS Other: All systems not noted in ROS Statement are negative. Past Medical History Past Medical History: No Reported History Additional Past Medical History / Comment(s): URINARY INCONTINENCE, PROLAPSED UTERUS History of Any Multi-Drug Resistant Organisms: None Reported Past Surgical History: No Surgical Hx Reported Additional Past Surgical History / Comment(s): REMOVAL OF NORPLANT Past Anesthesia/Blood Transfusion Reactions: No Reported Reaction Past Psychological History: No Psychological Hx Reported Smoking Status: Current every day smoker Past Alcohol Use History: Occasional Past Drug Use History: None Reported - Past Family History Mother Family Medical History: Hypertension Additional Family Medical History / Comment(s): Aortic aneurysm Father Family Medical History: CVA/TIA, Diabetes Mellitus, Hypertension General Exam Limitations: no limitations General appearance: alert, in no apparent distress Head exam: Present: atraumatic, normocephalic, normal inspection Eye exam: Present: normal appearance, PERRL, EOMI. Absent: scleral icterus, conjunctival injection, periorbital swelling ENT exam: Present: normal exam, normal oropharynx, mucous membranes moist Neck exam: Present: normal inspection, full ROM. Absent: tenderness, meningismus, lymphadenopathy Respiratory exam: Present: normal lung sounds bilaterally. Absent: respiratory distress, wheezes, rales, rhonchi, stridor Cardiovascular Exam: Present: regular rate, normal rhythm, normal heart sounds. Absent: systolic murmur, diastolic murmur, rubs, gallop, clicks GI/Abdominal exam: Present: soft, tenderness (Minimal suprapubic), normal bowel sounds. Absent: distended, guarding, rebound, rigid Back exam: Absent: CVA tenderness (R), CVA tenderness (L) Neurological exam: Present: alert Skin exam: Present: warm, dry, intact, normal color. Absent: rash Course Vital Signs 12/19/22 09:07 Temperature 98 F Pulse Rate 74 Respiratory 18 Rate Blood Pressure 130/86 O2 Sat by Pulse 99 Oximetry Medical Decision Making - Medical Decision Making Was pt. sent in by a medical professional or institution (DWAYNE Parisi, BLOOD BANK CREDIT CLERK, urgent care, hospital, or fci...) When possible be specific @ -No Did you speak to anyone other than the patient for history (EMS, parent, family, police, friend...)? What history was obtained from this source @ -No Did you review nursing and triage notes (agree or disagree)? Why? @ -I reviewed and agree with nursing and triage notes Were old charts reviewed (outside hosp., previous admission, EMS record, old EKG, old radiological studies, urgent care reports/EKG's, fci records)? Report findings @ -No old charts were reviewed Differential Diagnosis (chest pain, altered mental status, abdominal pain women, abdominal pain men, vaginal bleeding, weakness, fever, dyspnea, syncope, headache, dizziness, GI bleed, back pain, seizure, CVA, palpatations, mental health)? @ -Hematuria, UTI, pyelonephritis, kidney stone, renal mass, bladder mass, this list is not all inclusive EKG interpreted by me (3pts min.). @ -None X-rays interpreted by me (1pt min.). @ -None done CT interpreted by me (1pt min.). @ -None done U/S interpreted by me (1pt. min.). @ -None done What testing was considered but not performed or refused? (CT, X-rays, U/S, labs)? Why? @ -Consider CT though patient has large amount of bacteria and more consistent with hemorrhagic cystitis will have follow-up if not resolved for imaging What meds were considered but not given or refused? Why? @ -None Did you discuss the management of the patient with other professionals (professionals i.e. , PA, BLOOD BANK CREDIT CLERK, lab, RT, psych nurse, health social work professor, creative director, teacher, appeals officer, patient case coordinator)? Give summary @ -No Was smoking cessation discussed for >3mins.? @ -No Was critical care preformed (if so, how long)? @ -No Were there social determinants of health that impacted care today? How? (Homelessness, low income, unemployed, alcoholism, drug addiction, transportation, low edu. Level, literacy, decrease access to med. care, detention, rehab)? @ -No Was there de-escalation of care discussed even if they declined (Discuss DNR or withdrawal of care, Hospice)? DNR status @ -No What co-morbidities impacted this encounter? (DM, HTN, Smoking, COPD, CAD, Cancer, CVA, ARF, Chemo, Hep., AIDS, mental health diagnosis, sleep apnea, morbid obesity)? @ -None Was patient admitted / discharged? Hospital course, mention meds given and route, prescriptions, significant lab abnormalities, going to OR and other pertinent info. @ -Discharged patient presented premature patient has hemorrhagic cystitis patient does not have any flank pain. Patient was started on oral antibiotics was given initial dose of Rocephin prior to discharge patient will follow-up for imaging after course of antibiotics if symptoms do not improve Undiagnosed new problem with uncertain prognosis? @ -No Drug Therapy requiring intensive monitoring for toxicity (Heparin, Nitro, Insulin, Cardizem)? @ -No Were any procedures done? @ -No Diagnosis/symptom? @ -Hemorrhagic cystitis Acute, or Chronic, or Acute on Chronic? @ -Acute Uncomplicated (without systemic symptoms) or Complicated (systemic symptoms)? @ -[Uncomplicated Side effects of treatment? @ -No Exacerbation, Progression, or Severe Exacerbation? @ -No Poses a threat to life or bodily function? How? (Chest pain, USA, MS, pneumonia, PE, COPD, DKA, ARF, appy, cholecystitis, CVA, Diverticulitis, Homicidal, Suicidal, threat to staff... and all critical care pts) @ -No - Lab Data Result diagrams: 12/19/22 09:22 12/19/22 09:22 Lab Results 12/19/22 12/19/22 12/19/22 Range/Units 09:22 09:22 09:22 WBC 10.0 (3.8-10.6) k/uL RBC 4.06 (3.80-5.40) m/uL Hgb 13.6 (11.4-16.0) gm/dL Hct 39.9 (34.0-46.0) % MCV 98.2 (80.0-100.0) fL MCH 33.4 (25.0-35.0) pg MCHC 34.0 (31.0-37.0) g/dL RDW 12.9 (11.5-15.5) % Plt Count 255 (150-450) k/uL MPV 7.2 Neutrophils % 78 % Lymphocytes % 16 % Monocytes % 4 % Eosinophils % 1 % Basophils % 0 % Neutrophils # 7.8 H (1.3-7.7) k/uL Lymphocytes # 1.6 (1.0-4.8) k/uL Monocytes # 0.4 (0-1.0) k/uL Eosinophils # 0.1 (0-0.7) k/uL Basophils # 0.0 (0-0.2) k/uL Sodium 138 (137-145) mmol/L Potassium 4.2 (3.5-5.1) mmol/L Chloride 110 H (98-107) mmol/L Carbon Dioxide 25 (22-30) mmol/L Anion Gap 3 mmol/L BUN 13 (7-17) mg/dL Creatinine 0.71 (0.52-1.04) mg/dL Est GFR (CKD-EPI)AfAm >90 (>60 ml/min/1.73 sqM) Est GFR (CKD-EPI)NonAf >90 (>60 ml/min/1.73 sqM) Glucose 91 (74-99) mg/dL Calcium 8.9 (8.4-10.2) mg/dL Total Bilirubin 0.6 (0.2-1.3) mg/dL AST 23 (14-36) U/L ALT 22 (4-34) U/L Alkaline Phosphatase 53 (38-126) U/L Total Protein 6.4 (6.3-8.2) g/dL Albumin 3.8 (3.5-5.0) g/dL Urine Color Light Red Urine Appearance Cloudy H (Clear) Urine pH 5.5 (5.0-8.0) Ur Specific [place] 1.017 (1.001-1.035) Urine Protein Trace H (Negative) Urine Glucose (UA) Negative (Negative) Urine Ketones Negative (Negative) Urine Blood Large H (Negative) Urine Nitrite Negative (Negative) Urine Bilirubin Negative (Negative) Urine Urobilinogen <2.0 (<2.0) mg/dL Ur Leukocyte Esterase Large H (Negative) Urine RBC >182 H (0-5) /hpf Urine WBC >182 H (0-5) /hpf Urine Bacteria Rare H (None) /hpf Urine Mucus Rare H (None) /hpf Disposition Clinical Impression: Acute hemorrhagic cystitis Disposition: HOME SELF-CARE Condition: Stable Instructions (If sedation given, give patient instructions): Urinary Tract Infection in Women (ED) Additional Instructions: Please return to the Emergency Department if symptoms worsen or any other concerns. Prescriptions: Cephalexin [Keflex] 500 mg PO Q8HR #21 cap Is patient prescribed a controlled substance at d/c from ED?: No Referrals: None,Stated [Primary Care Provider] - 1-2 days Demetrius Bullock MD [STAFF PHYSICIAN] - 1-2 days Time of Disposition: 10:37
[2022-12-19] MEDS ORDERED: cefTRIAXone IN SWFI 1,000 MG/10 ML SYRINGE IVP STA (10:41)
[2022-12-19 11:15] VITALS: BP 122/68; PULSE 78; TEMP 98.9
== END 2022-12-19 11:00 | disposition home or self-care (01) ==
LOC: EC 09:01
DX: N30.01 Acute cystitis with hematuria (principal); F17.200 Nicotine dependence, unspecified, uncomplicated
CPT/HCPCS: 36415; 80053; 85025; 81001; 87086; 99283; 96374; 96361; J0696